=== PATIENT | male | born 1970 | race Caucasian/White ===

== ENCOUNTER 2017-03-18 23:20 | Emergency (ER) | payer BC ==
--- NOTE | 2017-03-19 16:36 | XR ---
Exam: 2 view thoracic spine. 2 views of the thoracic spine were obtained. HISTORY: Low back pain. FINDINGS: No acute fracture subluxation is identified. Vertebral body height and alignment are maintained. Soft tissues are unremarkable. IMPRESSION: No abnormality.
--- NOTE | 2017-03-19 16:40 | XR ---
Exam: Lumbar spine complete TECHNIQUE: 3 views lumbar spine were obtained. HISTORY: Low back pain. FINDINGS: There is no acute fracture subluxation. Vertebral body height and alignment are maintained. There cou ld be minimal foraminal narrowing at the level of L5-S1 due to facet disease. Soft tissue structures are unremarkable. IMPRESSION: No acute abnormality.
== END 2017-03-19 03:18 | disposition home or self-care (01) ==
LOC: EC 23:20
DX: M51.36 Other intervertebral disc degeneration, lumbar region (principal)
CPT/HCPCS: 72070; 72100; 96372; 99283

== ENCOUNTER 2021-02-22 13:37 | Observation (INO) | payer BC ==
--- NOTE | 2021-02-22 16:17 | ED ---
General Adult HPI - General Chief complaint: Skin/Abscess/Foreign Body Stated complaint: Swelling/infection Time Seen by Provider: 02/22/21 15:43 Source: patient, family, RN notes reviewed Mode of arrival: ambulatory Limitations: no limitations - History of Present Illness Initial comments: 50-year-old male presents to the emergency department accompanied by his spouse for evaluation healing wound. 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 States he had an extensive surgery at that time, but was able to continue his care back here at home. Patient states he is doing wound care at this facility once weekly, and also has home care coming to the house twice weekly. Patient states the home care nurse was there yesterday and marked area on the right gluteal wound border that they are monitoring. Spouse states the area of firmness has extended beyond the marked border, however has softened up. Patient and spouse expressed concern that this is an area of infection. Patient is not currently on any antibiotics. States his wound VAC was discontinued last week. Patient denies fever, chills, hea dache, nausea, or vomiting. Denies any wound drainage or erythema. Rates pain 2 out of 10. - Related Data Home Medications Medication Instructions Recorded Confirmed L.acidoph,Paracasei, B.lactis 1 cap PO DAILY 02/22/21 02/22/21 [Probiotic] Lansoprazole [Prevacid] 15 mg PO DAILY 02/22/21 02/22/21 RX: Acetaminophen [Tylenol] 1,000 mg PO DAILY PRN 02/22/21 02/22/21 Allergies Allergy/AdvReac Type Severity Reaction Status Date / Time No Known Allergies Allergy Verified 02/22/21 16:56 Review of Systems ROS Statement: Those systems with pertinent positive or pertinent negative responses have been documented in the HPI. ROS Other: All systems not noted in ROS Statement are negative. Past Medical History History of Any Multi-Drug Resistant Organisms: None Reported Additional Past Surgical History / Comment(s): gas gangrene removed Past Psychological History: No Psychological Hx Reported Smoking Status: Never smoker Past Alcohol Use History: None Reported Past Drug Use History: None Reported General Exam Limitations: no limitations (Well-developed, well-nourished male in no acute distress. Initial temperature 98.4, pulse 78, respirations 18, blood pressure 127/82, pulse ox 97% on room air.) General appearance: alert, in no apparent distress ENT exam: Present: normal exam, normal oropharynx, mucous membranes moist Neck exam: Present: normal inspection. Absent: tenderness, meningismus, lymphadenopathy Respiratory exam: Present: normal lung sounds bilaterally. Absent: respiratory distress, wheezes, rales, rhonchi, stridor Cardiovascular Exam: Present: regular rate, normal rhythm, normal heart sounds. Absent: systolic murmur, diastolic murmur, rubs, gallop, clicks GI/Abdominal exam: Present: soft, normal bowel sounds. Absent: distended, tenderness, guarding, rebound, rigid exam: Present: other (10 cm area in the L wound extending from the scrotum to the right gluteal area. Wound appears to be healing well with no evidence of discharge or drainage. Wound bed is beefy red. No erythematous borders. Right distal wound border has a large area of firmness that extends toward right gluteus). Absent: scrotal swelling Neurological exam: Present: alert, oriented X3, CN II-XII intact Psychiatric exam: Present: normal affect, normal mood Skin exam: Present: warm, dry, normal color Course Vital Signs 02/22/21 02/22/21 14:19 18:55 Temperature 98.4 F Pulse Rate 78 80 Respiratory 18 18 Rate Blood Pressure 127/82 132/68 O2 Sat by Pulse 97 98 Oximetry Medical Decision Making - Medical Decision Making This is a well-appearing 50-year-old male with a recent history of Eldon's gangrene requiring extensive surgery and wound care. Upon evaluation, patient has a 10 cm healing surgical site with a beefy red wound bed. Wound is loosely packed with Desitin-saturated gauze and covered with an ABD. Of concern is an area of firmness extending beyond the marked area at the distal end of the right gluteal wound border. Site is concerning for possible abscess; the area within in the marked border is fluctuant. Patient is afebrile, not tachycardic nor tachypneic. He is well-appearing and rates his pain a 2 out of 10. Laboratory studies were reviewed showing no leukocytosis. CT of the pelvis is unremarkable. However, due to the extent of his recent surgery, I feel that a high degree of caution is merited. Patient's care was discussed with my attending, Dr. Valadez, who also evaluated patient. Admission for IV antibiotic therapy and wound care is recommended; patient is agreeable. Spoke with Dr. Pugh who is willing to accept this patient. - Lab Data Result diagrams: 02/22/21 16:24 02/22/21 16:24 Lab Results 02/22/21 02/22/21 Range/Units 16:24 16:24 WBC 10.0 (3.8-10.6) k/uL RBC 5.00 (4.30-5.90) m/uL Hgb 14.6 (13.0-17.5) gm/dL Hct 41.5 (39.0-53.0) % MCV 83.0 (80.0-100.0) fL MCH 29.2 (25.0-35.0) pg MCHC 35.2 (31.0-37.0) g/dL RDW 13.9 (11.5-15.5) % Plt Count 268 (150-450) k/uL MPV 7.2 Neutrophils % 69 % Lymphocytes % 21 % Monocytes % 7 % Eosinophils % 1 % Basophils % 1 % Neutrophils # 6.9 (1.3-7.7) k/uL Lymphocytes # 2.1 (1.0-4.8) k/uL Monocytes # 0.7 (0-1.0) k/uL Eosinophils # 0.1 (0-0.7) k/uL Basophils # 0.1 (0-0.2) k/uL Sodium 137 (137-145) mmol/L Potassium 4.5 (3.5-5.1) mmol/L Chloride 101 (98-107) mmol/L Carbon Dioxide 27 (22-30) mmol/L Anion Gap 9 mmol/L BUN 17 (9-20) mg/dL Creatinine 1.17 (0.66-1.25) mg/dL Est GFR (CKD-EPI)AfAm 84 (>60 ml/min/1.73 sqM) Est GFR (CKD-EPI)NonAf 72 (>60 ml/min/1.73 sqM) Glucose 105 H (74-99) mg/dL Calcium 9.8 (8.4-10.2) mg/dL - Radiology Data Radiology results: report reviewed, image reviewed CT of the pelvis with contrast was obtained. Report was reviewed in its en tirety. Impression per Dr. Ro as negative computed tomography scan of the pelvis. Normal appendix. Posterior disc bulging noted at L4-5 Disposition Clinical Impression: Wound abscess Disposition: ADMITTED IP TO THIS HOSP Condition: Serious Is patient prescribed a controlled substance at d/c from ED?: No Decision Date: 02/22/21 Decision Time: 19:21
[2021-02-22 16:29] LABS: Basophils # (A) 0.1 k/uL (0-0.2); Basophils % (A) 1 %; Eosinophils # (A) 0.1 k/uL (0-0.7); Eosinophils % (A) 1 %; HCT 41.5 % (39.0-53.0); HGB 14.6 gm/dL (13.0-17.5); Lymphocytes # (A) 2.1 k/uL (1.0-4.8); Lymphocytes % (A) 21 %; MCH 29.2 pg (25.0-35.0); MCHC 35.2 g/dL (31.0-37.0); Mean Platelet Volume 7.2; Monocytes # (A) 0.7 k/uL (0-1.0); Monocytes % (A) 7 %; Neutrophils # (A) 6.9 k/uL (1.3-7.7); Neutrophils % (A) 69 %; Platelet Count 268 k/uL (150-450); RDW 13.9 % (11.5-15.5)
[2021-02-22 16:39] LABS: Calcium 9.8 mg/dL (8.4-10.2); Potassium 4.5 mmol/L (3.5-5.1)
--- NOTE | 2021-02-22 18:13 | CT ---
EXAMINATION TYPE: CT pelvis w con DATE OF EXAM: 02/22/2021 COMPARISON: HISTORY: swelling to surgical incision site CT DLP: 1160.5 mGycm Automated exposure control for dose reduction was used. CONTRAST: Performed with IV Contrast, patient injected with 100 mL of Isovue 300. Images obtained from the iliac crests to the floor the pelvis with IV contrast. Appendix is posterior and appears normal. There is no free fluid in the pelvis. Bladder distends smoo thly. There is no evidence of a pelvic mass. There is no inguinal hernia. There is no evidence of ing uinal mass. I see no evidence of a bowel obstruction. Sigmoid colon appears fairly normal. There is p osterior concentric disc bulging at L4-5. There is no evidence of a scrotal mass. No hydrocele. Pelvic ring is intact. Sacroiliac joints appear normal. Hip joints are intact. There is no evidence o f pelvic fracture. Delayed images show contrast in both distal ureters. No evidence of obstruction. IMPRESSION: Negative CT scan of the pelvis. Normal appendix. Mild posterior disc bulging noted at L4-5.
[2021-02-22] MEDS ORDERED: PIPERACILLIN-TAZOBACTAM 3.375 GM in SODIUM CHLORIDE 0.9% 100 ML IVPB STA (18:59)
[2021-02-22] MEDS ORDERED: NALOXONE 0.4 MG/ML 1 ML VIAL IV PRN (19:11)
[2021-02-22] MEDS ORDERED: ACETAMINOPHEN TAB 325 MG TAB PO PRN (19:11)
[2021-02-22] MEDS ORDERED: HYDROcodone/APAP 5-325MG 1 EACH TAB PO PRN (19:11)
[2021-02-22] MEDS ORDERED: IBUPROFEN 400 MG TAB PO PRN (19:11)
[2021-02-23 08:21] VITALS: BP 123/67; PULSE 67; RESP 18; TEMP 97.6
--- NOTE | 2021-02-23 08:30 | P.HPIM ---
History of Present Illness Chief Complaint: Perineal pain. This is a history and physical on a 50-year-old white male who had significant gas gangrene after having a perineal wound. Debridement was done. This was done out of town when he was working. The patient is a contractor. He is been doing well with wound care and seeing Dr. Paredes. However, he started having significant right sided perirectal/perineal pressure. The wound is healing otherwise nicely. No fever. No chills but because of the severity of his wound, he is admitted for appropriate observation. Appreciate consultants input Review of Systems Constitutional: Denies chills, Denies fever Eyes: denies blurred vision, denies pain Ears, nose, mouth and throat: Denies headache, Denies sore throat Cardiovascular: Denies chest pain, Denies shortness of breath Respiratory: Denies cough Gastrointestinal: Denies abdominal pain, Denies diarrhea, Denies nausea, Denies vomiting Musculoskeletal: Denies myalgias Past Medical History Past Medical History: No Reported History History of Any Multi-Drug Resistant Organisms: None Reported Past Surgical History: Hernia Repair Additional Past Surgical History / Comment(s): surgery for juli gangrene 01/12/21, cyst removal- one from left foot and 3 removed from back Past Anesthesia/Blood Transfusion Reactions: No Reported Reaction Past Psychological History: No Psychological Hx Reported Smoking Status: Former smoker Past Alcohol Use History: None Reported Past Drug Use History: None Reported Medications and Allergies Home Medications Medication Instructions Recorded Confirmed Type Acetaminophen [Tylenol] 1,000 mg PO DAILY PRN 02/22/21 02/22/21 History L.acidoph,Paracasei, B.lactis 1 cap PO DAILY 02/22/21 02/22/21 History [Probiotic] Lansoprazole [Prevacid] 15 mg PO DAILY 02/22/21 02/22/21 History Allergies Allergy/AdvReac Type Severity Reaction Status Date / Time No Known Allergies Allergy Verified 02/22/21 16:56 Physical Exam Vitals: Vital Signs Temp Pulse Pulse Resp BP BP Pulse Ox 02/23/21 07:00 97.6 F 67 18 123/67 98 02/23/21 01:10 97.4 F L 63 14 116/73 97 02/22/21 21:36 72 18 02/22/21 20:57 98.4 F 72 18 135/83 95 11/28/21 18:55 80 18 132/68 98 02/22/21 14:19 98.4 F 78 18 127/82 97 Intake and Output 02/22/21 02/23/21 02/23/21 22:59 06:59 14:59 Other: Voiding Method Toilet # Voids 1 1 Weight 104.326 kg - Constitutional General appearance: no acute distress - EENT Eyes: EOMI - Neck Neck: no lymphadenopathy - Respiratory Respiratory: bilateral: CTA - Cardiovascular Rhythm: regular Heart sounds: normal: S1, S2 Abnormal Heart Sounds: no S3 Gallop - Gastrointestinal General gastrointestinal: soft, no tenderness - Genitourinary Continue area is healing well. Question right buttock/perineal mass. - Neurologic Neurologic: CNII-XII intact Results CBC & Chem 7: 02/22/21 16:24 02/22/21 16:24 Labs: Abnormal Lab Results - Last 24 Hours (Table) 02/22/21 Range/Units 16:24 Glucose 105 H (74-99) mg/dL Thrombosis Risk Factor Assmnt - Choose All That Apply Each Factor Represents 1 point: Age 41-60 years, Obesity (BMI >25) Thrombosis Risk Factor Assessment Total Risk Factor Score: 2 Thrombosis Risk Factor Assessment Level: Low Risk Assessment and Plan (1) Reflux esophagitis Current Visit: Yes Status: Acute Code(s): K21.00 - GASTRO-ESOPHAGEAL REFLUX DIS WITH ESOPHAGITIS, WITHOUT BLEED SNOMED Code(s): 346117783 (2) Wound abscess Current Visit: Yes Status: Acute Code(s): EYH0175 - SNOMED Code(s): 969259622 Plan: Reconcile home medications. Continue antibiotic treatment. Appreciate infectious disease input. Hopefully we can take care of this without any type of surgical intervention. Check CBC and CMP in a.m.
[2021-02-23] MEDS ORDERED: PANTOPRAZOLE 40 MG TABLET PO SCH (09:00)
--- NOTE | 2021-02-23 13:49 | P.CONS ---
History of Present Illness - Reason for Consult Consult date: 02/23/21 wound care - History of Present Illness This is a 50-year-old patient known to the wound care center with a nonhealing ulceration to the perineum. Patient had a hernia necrotizing fasciitis. He currently wishes utilizing a wound VAC was removed last Tuesday. Patient noticed a area of concern to the distal portion of the ulceration with swelling and firmness to the site. Patient denies any fever, redness or pain. There is no signs of infection at this time. Ulceration continues to show improvement. The wound is currently classified as a Full Thickness Without Exposed Support Structures wound with etiology of Necrotizing Infection and is located on the Perineum. The wound measures 6cm length x 0.9cm width x 1cm depth; 4.241cm^2 area and 4.241cm^3 volume. There is Fat Layer (Subcutaneous Tissue) exposed. The re is no tunneling or undermining noted. There is a medium amount of serosanguineous drainage noted. The wound margin is distinct with the outline attached to the wound base. There is large (67-100%) red granulation within the wound bed. There is no necrotic tissue within the wound bed. The periwound skin appearance exhibited: Scarring. The periwound skin appearance did not exhibit: Callus, Crepitus, Excoriation, Induration, Rash, Dry/Scaly, Maceration, Atrophie Greta, Cyanosis, Ecchymosis, Hemosiderin Staining, Mottled, Pallor, Rubor, Erythema. Review Of Systems: Constitutional: No fever, no chills, no night sweats. No weight change. No weakness, fatigue or lethargy. No daytime sleepiness. Integumentary:reports wounds, no lesions. No rash or pruritus. No unusual bruising. No change in hair or nails. Physical exam: General Appearance: Alert, cooperative, no distress, appears stated age. Skin: See HPI all other Skin color, texture, tugor normal, no rashes or lesions. Neurologic: Alert oriented x3 Assessment: 1. 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 Necrotizing fasciitis Plan: 1. Apply triad, dry gauze, ABDs and secure with mesh underpants. Change daily. Patient has an appointment with the wound care center on Tuesday at 8:15. Thank you for the consultation any questions please contact the wound care center DNP note has been reviewed and discussed with Dr. Paredes and the impression and plan of care has been directed as dictated. Past Medical History Past Medical History: No Reported History History of Any Multi-Drug Resistant Organisms: None Reported Past Surgical History: Hernia Repair Additional Past Surgical History / Comment(s): surgery for juli gangrene 01/12/21, cyst removal- one from left foot and 3 removed from back Past Anesthesia/Blood Transfusion Reactions: No Reported Reaction Past Psychological History: No Psychological Hx Reported Smoking Status: Former smoker Past Alcohol Use History: None Reported Past Drug Use History: None Reported Medications and Allergies Home Medications Medication Instructions Recorded Confirmed Type Acetaminophen [Tylenol] 1,000 mg PO DAILY PRN 02/22/21 02/22/21 History L.acidoph,Paracasei, B.lactis 1 cap PO DAILY 02/22/21 02/22/21 History [Probiotic] Lansoprazole [Prevacid] 15 mg PO DAILY 02/22/21 02/22/21 History Allergies Allergy/AdvReac Type Severity Reaction Status Date / Time No Known Allergies Allergy Verified 02/22/21 16:56 Physical Exam Vitals: Vital Signs Temp Pulse Pulse Resp BP BP Pulse Ox 02/23/21 07:00 97.6 F 67 18 123/67 98 02/23/21 01:10 97.4 F L 63 14 116/73 97 02/22/21 21:36 72 18 02/22/21 20:57 98.4 F 72 18 135/83 95 02/22/21 18:55 80 18 132/68 98 02/22/21 14:19 98.4 F 78 18 127/82 97 Intake and Output 02/22/21 02/23/21 02/23/21 22:59 06:59 14:59 Intake Total 360 Balance 360 Intake: Oral 360 Other: Voiding Method Toilet # Voids 1 1 Weight 104.326 kg Results CBC & Chem 7: 02/22/21 16:24 02/22/21 16:24 Labs: Abnormal Lab Results - Last 24 Hours (Table) 02/22/21 Range/Units 16:24 Glucose 105 H (74-99) mg/dL
[2021-02-23] MEDS ORDERED: HYDROPHILIC CREAM 180 GM TUBE TOPICAL SCH (14:00)
--- NOTE | 2021-02-25 15:05 | P.DS ---
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 The patient had significant wound incision and drainage when he was in [place], where this happened. He was doing quite well in wound clinic however started developing significant right buttock/perineal pressure. He was apparently started on antibiotics and evaluated by infectious disease. The patient was discharged once He was evaluated by infectious disease. Appreciate consultation and you will be following up with me in about 3-5 days. Patient Condition at Discharge: Serious Plan - Discharge Summary New Discharge Prescriptions: New Ibuprofen [Motrin] 400 mg PO Q6HR PRN #90 tab PRN Reason: Mild Pain Or Fever > 100.5 Continue Lansoprazole [Prevacid] 15 mg PO DAILY Acetaminophen [Tylenol] 1,000 mg PO DAILY PRN PRN Reason: HEADACHE/PAIN L.acidoph,Paracasei, B.lactis [Probiotic] 1 cap PO DAILY Discharge Medication List Acetaminophen [Tylenol] 1,000 mg PO DAILY PRN 02/22/21 [History] L.acidoph,Paracasei, B.lactis [Probiotic] 1 cap PO DAILY 02/22/21 [History] Lansoprazole [Prevacid] 15 mg PO DAILY 02/22/21 [History] Ibuprofen [Motrin] 400 mg PO Q6HR PRN #90 tab 02/23/21 [Rx] Follow up Appointment(s)/Referral(s): Vu Fitzpatrick MD [Primary Care Provider] - 1 Week Patient Instructions/Handouts: Abscess (GEN) Discharge Disposition: HOME SELF-CARE
== END 2021-02-23 15:10 | disposition home or self-care (01) ==
LOC: EC 13:37 → 6NMEDSUR 18:45
PROVIDERS: ADMIT Family Medicine; ATTEND Family Medicine
DX: K21.00 Gastro-esophageal reflux disease with esophagitis, without bleeding (principal); L98.412 Non-pressure chronic ulcer of buttock with fat layer exposed; M72.6 Necrotizing fasciitis; Z20.822 Contact with and (suspected) exposure to COVID-19; E66.9 Obesity, unspecified; Z68.32 Body mass index [BMI] 32.0-32.9, adult; Z87.891 Personal history of nicotine dependence; Z86.19 Personal history of other infectious and parasitic diseases
CPT/HCPCS: 99285; 96365; 36415; 80048; 85025; 87635; 72193; G0378 ×2; J2543; Q9967

== ENCOUNTER 2022-01-21 06:33 | Day surgery (SDC) | payer BC ==
[2022-01-20 11:12] VITALS: BMI 33.5
[~2022-01-21 06:33] MED LIST: LACTATED RINGERS 1,000 ML IV SCH
[2022-01-21] MEDS ORDERED: LACTATED RINGERS 1,000 ML IV ONE (06:58)
[2022-01-21 07:09] VITALS: TEMP 97.8
[2022-01-21] MEDS ORDERED: LIDOCAINE 1% (10MG/ML) FOR IV START INTRADERMA ONE (07:09)
[2022-01-21] MEDS ORDERED: PROPOFOL 10 MG/ML 20 ML VIAL IV ONE (07:41)
--- NOTE | 2022-01-21 08:03 | P.GSHP ---
History of Present Illness H&P Date: 01/21/22 Chief Complaint: Screening colonoscopy Is a 51-year-old male presents today for screening colonoscopy. Patient denies a significant GI complaints. 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-had a wound vac,positional vertigo History of Any Multi-Drug Resistant Organisms: None Reported Past Surgical History: Hernia Repair Additional Past Surgical History / Comment(s): surgery for juli gangrene 01/12/21, cyst removal- one from left foot and 3 removed from back Past Anesthesia/Blood Transfusion Reactions: No Reported Reaction Smoking Status: Former smoker - Past Family History Mother Family Medical History: No Reported History Father Family Medical History: Cancer Additional Family Medical History / Comment(s): large cell lung cancer Medications and Allergies Home Medications Medication Instructions Recorded Confirmed Type Lansoprazole [Prevacid] 15 mg PO QAM 02/22/21 01/20/22 History Allergies Allergy/AdvReac Type Severity Reaction Status Date / Time No Known Allergies Allergy Verified 01/20/22 10:59 Surgical - Exam Vital Signs Temp Pulse Resp BP Pulse Ox 97.8 F 89 18 145/82 98 01/21/22 07:07 01/21/22 07:07 01/21/22 07:07 01/21/22 07:07 01/21/22 07:07 - General well developed, well nourished, no distress - Eyes PERRL - ENT normal pinna - Neck no masses - Respiratory normal expansion - Cardiovascular Rhythm: regular - Abdomen Abdomen: soft, non tender Assessment and Plan Assessment: We'll perform screening colonoscopy
--- NOTE | 2022-01-21 08:04 | P.OP ---
Date of Procedure: 01/21/22 Preoperative Diagnosis: Screening colonoscopy Postoperative Diagnosis: Mild diverticulosis Procedure(s) Performed: Colonoscopy Anesthesia: MAC Surgeon: Contreras Shaffer Pathology: none sent Condition: stable Disposition: PACU Description of Procedure: Patient's placed on the endoscopy table in the lateral position. He received IV sedation. Digital rectal exam was performed. This revealed no ebonized. Flexible colonoscope was then placed patient anus and passed throughout the entire colon. The ileocecal valve was visualized. Cecum, ascending and transverse colon appeared normal. In the descending; there is mild diverticular changes. Scope was brought back the rectum and this appeared normal. Scope was then withdrawn from the patient.
[2022-01-21 08:07] VITALS: RESP 16
[2022-01-21 08:23] VITALS: BP 124/85; PULSE 55
== END 2022-01-21 08:56 | disposition home or self-care (01) ==
LOC: ORWHC2ENDO 06:33
PROVIDERS: ATTEND Surgery
DX: Z12.11 Encounter for screening for malignant neoplasm of colon (principal); K57.30 Diverticulosis of large intestine without perforation or abscess without bleeding; K21.9 Gastro-esophageal reflux disease without esophagitis; R42 Dizziness and giddiness; N49.3 Fournier gangrene; Z87.891 Personal history of nicotine dependence; Z98.890 Other specified postprocedural states; Z80.1 Family history of malignant neoplasm of trachea, bronchus and lung; Z79.899 Other long term (current) drug therapy
CPT/HCPCS: 45378; J2704

== ENCOUNTER → 2022-04-12 | Outpatient (CLI) | payer BC ==
[2022-04-12 17:54] LABS: HCT 47.1 % (39.6-50.0); MCH 27.7 pg (27.0-32.0); MCHC 31.8 g/dL (32.0-37.0); MCV 86.9 fL (80.0-97.0); Mean Platelet Volume 9.6 fL (9.5-12.2); NRBC Per 100 WBC 0 /100 WBCS (0.0-0.0); Platelet Count 306 X 10*3/uL (140-440); RBC 5.42 X 10*6/uL (4.40-5.60); RDW 12.7 % (11.5-14.5); WBC 8.67 X 10*3/uL (4.50-10.00)
[2022-04-12 18:23] LABS: Follicle Stimulating Hormone 4.4 mIU/mL; Prolactin 9.6 ng/mL (2.100-17.700)
[2022-04-12 19:08] LABS: Thyroid Peroxidase Antibodies <9.0 U/mL (0.0-33.0)
[2022-04-12 19:51] LABS: African American GFR (CKD) 66.9 (60.0-200.0); Albumin 4.6 g/dL (3.8-4.9); Albumin/Globulin Ratio 1.92 (1.60-3.17); Anion Gap 15.2 mmol/L (10.00-18.00); BUN/Creat Ratio 12.29 Ratio (12.00-20.00); Blood Urea Nitrogen 17.2 mg/dL (9.0-27.0); Carbon Dioxide 25.8 mmol/L (20.0-27.5); Globulin 2.4 g/dL (1.6-3.3); Non-African American GFR(CKD) 57.8 (60.0-200.0); Potassium 5.7 mmol/L (3.5-5.5); Prostate Specific Antigen 1.8 ng/mL (0.00-3.50); T4, Free (Free Thyroxine) 1.03 ng/dL (0.800-1.800); Total Bilirubin 0.3 mg/dL (0.30-1.20)
== END | disposition home or self-care (01) ==
LOC: LABWHC1 12:59
PROVIDERS: ATTEND Internal Medicine Endocrinology, Diabetes & Metabolism
DX: E29.1 Testicular hypofunction (principal); R53.83 Other fatigue
CPT/HCPCS: 36415; 80053; 82024; 82533; 82607; 83001; 83002; 84146; 84153; 84403; 84439; 84443; 84480; 85027; 86376

== ENCOUNTER → 2022-04-17 | Outpatient (CLI) | payer BC ==
[2022-04-17 14:18] LABS: African American GFR (CKD) 66.9 (60.0-200.0); Albumin 4.7 g/dL (3.8-4.9); Albumin/Globulin Ratio 1.88 (1.60-3.17); Anion Gap 11.3 mmol/L (10.00-18.00); BUN/Creat Ratio 13.57 Ratio (12.00-20.00); Calcium 9.9 mg/dL (8.7-10.3); Carbon Dioxide 28.7 mmol/L (20.0-27.5); Globulin 2.5 g/dL (1.6-3.3); Non-African American GFR(CKD) 57.8 (60.0-200.0); Potassium 5.1 mmol/L (3.5-5.5); Total Bilirubin 0.5 mg/dL (0.30-1.20); Total Protein 7.2 g/dL (6.2-8.2)
== END | disposition home or self-care (01) ==
LOC: LABWHC1 08:10
PROVIDERS: ATTEND Internal Medicine Endocrinology, Diabetes & Metabolism
DX: R73.03 Prediabetes (principal)
CPT/HCPCS: 36415; 80053; 83036

== ENCOUNTER → 2022-09-02 | Outpatient (CLI) | payer BC ==
[2022-09-02 16:00] LABS: ALT 40 U/L (10-49); AST 29 U/L (14-35); Albumin 4.5 d/dL (3.8-4.9); Albumin/Globulin Ratio 1.96 Ratio (1.60-3.17); Alkaline Phosphatase 92 U/L (41-126); BUN/Creat Ratio 18.75 Ratio (12.00-20.00); Blood Urea Nitrogen 22.5 mg/dL (9.0-27.0); Calcium 10.3 mg/dL (8.7-10.3); Chloride 102 mmol/L (96-109); Chol/HDL Ratio 2.69 Ratio; Globulin 2.3 d/dL (1.6-3.3); Glucose 125 mg/dL (70-110); LDL Cholesterol,Calculated 53.7 mg/dL (0.0-131.0); Potassium 5.4 mmol/L (3.5-5.5); Sodium 140 mmol/L (135-145); Total Bilirubin 0.2 mg/dL (0.3-1.2); Total Protein 6.8 d/dL (6.2-8.2)
[2022-09-02 18:34] LABS: Microalbumin Creatinine Ratio <8 mg/g Cr (0-30)
== END | disposition home or self-care (01) ==
LOC: LABWHC1 07:47
PROVIDERS: ATTEND Internal Medicine Endocrinology, Diabetes & Metabolism
DX: E11.65 Type 2 diabetes mellitus with hyperglycemia (principal); E29.1 Testicular hypofunction
CPT/HCPCS: 36415; 80053; 80061; 82043; 82570; 83036; 84403; 84443

== ENCOUNTER → 2023-03-12 | Outpatient (CLI) | payer BC ==
[2023-03-12 13:58] LABS: HCT 44.9 % (39.6-50.0); HGB 15.1 g/dL (13.0-17.0); MCHC 33.6 g/dL (32.0-37.0); MCV 83.1 FL (80.0-97.0); Mean Platelet Volume 9.5 FL (9.5-12.2); NRBC Per 100 WBC 0 X 10*3/uL (0.00-0.01); Platelet Count 235 X 10*3/uL (140-440); RDW 12.9 % (11.5-14.5); WBC 7.53 X 10*3/uL (4.50-10.00)
[2023-03-12 14:02] LABS: ALT 49 U/L (10-49); AST 29 U/L (14-35); Albumin 4.4 g/dL (3.8-4.9); Albumin/Globulin Ratio 1.76 Ratio (1.60-3.17); Alkaline Phosphatase 84 U/L (41-126); BUN/Creat Ratio 16.27 Ratio (12.00-20.00); Blood Urea Nitrogen 17.9 mg/dL (9.0-27.0); Calcium 9.6 mg/dL (8.7-10.3); Chloride 102 mmol/L (96-109); Chol/HDL Ratio 3.28 Ratio; Globulin 2.5 g/dL (1.6-3.3); Glucose 155 mg/dL (70-110); LDL Cholesterol,Calculated 71.9 mg/dL (0.0-131.0); Potassium 4.7 mmol/L (3.5-5.5); Sodium 139 mmol/L (135-145); T4, Free (Free Thyroxine) 0.99 ng/dL (0.80-1.80); Total Bilirubin 0.3 mg/dL (0.3-1.2); Total Protein 6.9 g/dL (6.2-8.2)
== END | disposition home or self-care (01) ==
LOC: LABWHC1 08:15
PROVIDERS: ATTEND Family Medicine
DX: Z00.00 Encounter for general adult medical examination without abnormal findings (principal); Z12.5 Encounter for screening for malignant neoplasm of prostate
CPT/HCPCS: 84439; 80061; 80053; 84443; 85027; 36415; G0103